=== PATIENT | female | born 1985 | race Caucasian/White ===

== ENCOUNTER 2017-06-15 11:43 | Emergency (ER) | payer SELFPAY ==
[~2017-06-15] VITALS: Ht 157.5 cm; Wt 67.0 kg
[2017-06-15 12:11] VITALS: BP 103/59
[2017-06-16] MEDS ORDERED: VISCOUS LIDOCAINE 2% 15 ML UDC MM STA (00:58)
== END 2017-06-16 01:45 | disposition left against medical advice (07) ==
LOC: ER 13:10
DX: K12.0 Recurrent oral aphthae (principal)
CPT/HCPCS: 99281

== ENCOUNTER 2020-02-09 04:48 | Emergency (ER) | payer SELFPAY ==
[~2020-02-09] VITALS: Ht 157.5 cm; Wt 73.0 kg
[2020-02-09 04:54] VITALS: BP 125/75
[2020-02-09] MEDS ORDERED: SULFAMETHOXAZOLE/TRIMETHOPRIM 800/160MG TABLET PO ONE (06:30)
== END 2020-02-09 06:57 | disposition home or self-care (01) ==
LOC: ER 04:48
DX: L03.211 Cellulitis of face (principal)
CPT/HCPCS: 81025; 99283